=== PATIENT | female | born 1995 | race Caucasian/White ===

== ENCOUNTER 2017-12-07 13:31 | Emergency (ER) | payer MEDICAID ==
[~2017-12-07] VITALS: Ht 157.5 cm; Wt 98.5 kg
[2017-12-07 13:42] VITALS: BP 150/99
--- NOTE | 2017-12-07 13:47 | NUR ---
Patient ambulated to bed 6. RN evaluating patient at bedside.
--- NOTE | 2017-12-07 13:50 | NUR ---
Roma mc in [facility] - 12/07/17 at 1426 by MEDS Patient being evaluated by physician at bedside.
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
--- NOTE | 2017-12-07 13:53 | NUR ---
Dr. Tee evaluating patient at bedside.
--- NOTE | 2017-12-07 14:00 | NUR ---
EMT AT BEDSIDE FITTING POST OP SHOE
[2017-12-07] MEDS ORDERED: NEOMYCIN/POLYMYXIN/BACITRACIN 0.9 GM/1 PKT TP ONE (14:02)
[2017-12-07 14:33] VITALS: BP 146/96
--- NOTE | 2017-12-07 14:33 | NUR ---
Patient discharged with v/s stable. Written and verbal after care instructions given and explained. Patient alert, oriented and verbalized understanding of instructions. Ambulatory with steady gait. All questions addressed prior to discharge. ID band removed. Patient advised to follow up with PMD. Rx of MUPIROCIN2% TOPICAL CREAM given. Patient educated on indication of medication including possible reaction and side effects. Opportunity to ask questions provided and answered.
== END 2017-12-07 14:33 | disposition home or self-care (01) ==
LOC: MED 13:31
DX: L08.89 Other specified local infections of the skin and subcutaneous tissue (principal); R03.0 Elevated blood-pressure reading, without diagnosis of hypertension
CPT/HCPCS: 99283

== ENCOUNTER 2018-05-21 20:42 | Emergency (ER) | payer MEDICAID ==
[~2018-05-21] VITALS: Ht 157.5 cm; Wt 98.5 kg
[2018-05-21 20:45] VITALS: BP 117/80
--- NOTE | 2018-05-21 20:49 | NUR ---
TO LOBBY A/W BED, PAWAN SHETTY , NIGEL NOTED
--- NOTE | 2018-05-21 21:29 | NUR ---
Roma mc in [facility] - 05/21/18 at 2131 by ELAYNE PT TAKEN TO BED 4
--- NOTE | 2018-05-21 21:31 | NUR ---
PT TO ER BED 4
--- NOTE | 2018-05-21 21:45 | NUR ---
PATIENT PRESENTS TO ED WITH ABD PAIN. PT STATES PAIN SINCE THIS MORNING THAT HAS INCREASED IN INTENSITY AND IS CURRENTLY AT 8/10. PT REPORTS N/D; ABD IS SOFT, TENDER IN EPIGASTRIC REGION, WITH BOWEL SOUNDS PRESENT X4 QUADRANTS. SKIN IS PINK/WARM/DRY; AAOX4 WITH EVEN AND STEADY GAIT; VSS; PATIENT POSITIONED FOR COMFORT; HOB ELEVATED; BEDRAILS UP X2; BED DOWN. ER MD MADE AWARE OF PT STATUS.
--- NOTE | 2018-05-21 22:04 | NUR ---
DR ARMSTRONG AT BEDSIDE EVALUATING PT.
[2018-05-21] MEDS ORDERED: NACL 0.9% 1,000 ML IV ONE (22:20)
[2018-05-21] MEDS ORDERED: KETOROLAC 30 MG/ML VIAL IVP ONE (22:20)
[2018-05-21 22:29] LABS: BASOPHILS % (AUTO) 0.2 % (0.0-2.0); EOSINOPHILS # (AUTO) 0.1 K/uL (0-0.4); EOSINOPHILS % (AUTO) 0.6 % (0.0-4.0); HEMATOCRIT 37.2 % (36-48); HEMOGLOBIN 11.8 g/dL (12.0-16.0); LYMPHOCYTES # (AUTO) 2.8 K/uL (2.5-16.5); LYMPHOCYTES % (AUTO) 19.5 % (20.5-51.1); MEAN CORPUSCULAR HEMOGLOBIN 28 pg (27-31); MEAN CORPUSCULAR HGB CONC 32 g/dL (33-37); MEAN CORPUSCULAR VOLUME 87.8 fL (80-94); MONOCYTES % (AUTO) 6.9 % (1.7-9.3); NEUTROPHILS # (AUTO) 10.6 K/uL (1.8-7.7); NEUTROPHILS % (AUTO) 72.8 % (42.2-75.2); PLATELET COUNT (AUTO) 327 K/uL (140-450); RED BLOOD CELL COUNT(AUTO) 4.24 MIL/uL (4.20-5.40); RED CELL DISTRIBUTION WIDTH 14.1 % (11.6-13.7); WHITE BLOOD COUNT (AUTO) 14.5 K/uL (4.8-10.8)
--- NOTE | 2018-05-21 22:36 | NUR ---
PT RETURNED FROM RADIOLOGY
[2018-05-21 22:51] LABS: ALBUMIN 3.9 g/dL (3.4-5.0); ANION GAP 9.3 (8-16); CARBON DIOXIDE 24.6 mmol/L (21-32); CREATININE 0.8 mg/dL (0.6-1.3); POTASSIUM 3.9 mmol/L (3.5-5.1); TOTAL BILIRUBIN 0.5 mg/dL (0.0-1.0)
--- NOTE | 2018-05-21 23:50 | NUR ---
PT RESTING IN BED ON HER PHONE. PT DENIES PAIN. SAFETY PRECAUTIONS IN PLACE. WILL CONTINUE TO MONITOR.
[2018-05-22] MEDS ORDERED: cefTRIAXone 1,000 MG VIAL ONE (00:12)
[2018-05-22 01:00] VITALS: BP 101/63
--- NOTE | 2018-05-22 01:00 | NUR ---
Patient discharged with v/s stable. Written and verbal after care instructions given and explained. Patient alert, oriented and verbalized understanding of instructions. Ambulatory with steady gait. All questions addressed prior to discharge. ID band removed. Patient advised to follow up with PMD. Rx of Bactrim DS and Tramadol given. Patient educated on indication of medication including possible reaction and side effects. Opportunity to ask questions provided and answered.
== END 2018-05-22 01:00 | disposition home or self-care (01) ==
LOC: MED 20:42
DX: D72.829 Elevated white blood cell count, unspecified (principal); R19.7 Diarrhea, unspecified
CPT/HCPCS: 36415; 74022; 80053; 81002; 81025; 83690; 85025; 96361; 96365; 96375; 99284; J0696; J1885

== ENCOUNTER 2018-06-07 12:38 | Emergency (ER) | payer MEDICAID ==
[~2018-06-07] VITALS: Ht 160 cm; Wt 97.5 kg
[2018-06-07 12:44] VITALS: BP 136/73
--- NOTE | 2018-06-07 12:50 | NUR ---
PT AMBULATES TO BED 5
--- NOTE | 2018-06-07 12:59 | NUR ---
AAO WITH C/O PRODUCTIVE COUGH, NASAL/CHEST CONGESTION, SHARP ANTERIOR CHEST WALL PAIN UPON COUGHING X 3 DAYS HX---DENIES RX---NONE
[2018-06-07] MEDS ORDERED: DEXAMETHASONE 10 MG/ML VIAL IM ONE (13:30)
[2018-06-07] MEDS ORDERED: ALBUTEROL SULFATE/IPRATROPIU 3 ML SOL IH ONE (13:30)
[2018-06-07] MEDS ORDERED: CLINDAMYCIN 600 MG/4 ML VIAL IM ONE (13:30)
--- NOTE | 2018-06-07 14:35 | NUR ---
Patient being evaluated by physician at bedside.
[2018-06-07 15:38] VITALS: BP 110/62
--- NOTE | 2018-06-07 15:38 | NUR ---
Patient discharged with v/s stable. Written and verbal after care instructions given and explained. Patient alert, oriented and verbalized understanding of instructions. Ambulatory with steady gait. All questions addressed prior to discharge. ID band removed. Patient advised to follow up with PMD. Rx of Clindamycin, Prednisone given. Patient educated on indication of medication including possible reaction and side effects. Opportunity to ask questions provided and answered.
== END 2018-06-07 15:38 | disposition home or self-care (01) ==
LOC: MED 12:38
DX: R05 Cough (principal); R09.81 Nasal congestion; R51 Headache; R53.1 Weakness
CPT/HCPCS: 94640; 96372; 99283; J1100; J3490; J7620

== ENCOUNTER 2018-06-07 21:34 | Emergency (ER) | payer MEDICAID ==
[~2018-06-07] VITALS: Ht 157.5 cm; Wt 113.4 kg
--- NOTE | 2018-06-07 21:44 | NUR ---
TO BED # 11 AMBULATORY, REPORT GIVEN TO EDIE TRACY
[2018-06-07 21:47] VITALS: BP 132/74
--- NOTE | 2018-06-07 21:53 | NUR ---
23 YO F BIB SELF. PT STATES SHE WAS AT [facility] ER THIS AFTERNOON FOR THROAT PAIN. PT STATES SHE STARTED HAVING FULL FACIAL TINGLING THAT STARTED AROUND 2000 TONIGHT. C/O OF HEADACHE 6/10 PAIN STARTED AT THE SAME TIME OF FACIAL TINGLING. PUPILS EQUAL; REACTIVE AND BRISK. HAND STRENGTH EQUAL BILATERALY. FACIAL SMILE SYMETRICAL. DENIES LOC; AAOX4. CLEAR SPEACH. GCS 15. HX: BELLS PALSEY (DX IN 2016).
--- NOTE | 2018-06-07 22:02 | NUR ---
MICHAEL MORSE AT BEDSIDE.
[2018-06-07 22:15] VITALS: BP 140/82
--- NOTE | 2018-06-07 22:15 | NUR ---
Patient discharged with v/s stable. Written and verbal after care instructions given and explained. Patient alert, oriented and verbalized understanding of instructions. Ambulatory with steady gait. All questions addressed prior to discharge. ID band removed. Patient advised to follow up with PMD. Rx of PREDNISONE 50MG given. Patient educated on indication of medication including possible reaction and side effects. Opportunity to ask questions provided and answered.
== END 2018-06-07 22:15 | disposition home or self-care (01) ==
LOC: MED 21:34
DX: R20.2 Paresthesia of skin (principal); G51.0 Bell's palsy
CPT/HCPCS: 99283

== ENCOUNTER 2018-10-10 13:52 | Emergency (ER) | payer MEDICAID ==
[~2018-10-10] VITALS: Ht 157.5 cm; Wt 99.3 kg
[2018-10-10 14:08] VITALS: BP 115/72
--- NOTE | 2018-10-10 14:12 | NUR ---
PT AMBULATED TO RESTROOM TO PROVIDE URINE SAMPLE AND THEN IS GOING TO LOBBY. VSS.
--- NOTE | 2018-10-10 14:43 | NUR ---
PATIENT AMBULATED TO ER BED 3.
--- NOTE | 2018-10-10 14:45 | NUR ---
C/O VOMITING, HEADACH, ABD PAIN, AND HOT AND COLD FLASHES SINCE 03:00 THIS MORNING. PT REPORTS INTERMITENT SHARP EPIGASTRIC PAIN AT 9/10. . SKIN IS PINK/WARM/DRY; AAOX4 WITH EVEN AND STEADY GAIT; LUNGS CLEAR BL; HR EVEN AND REGULAR; PT DENIES ANY FEVER, CP, SOB, OR COUGH AT THIS TIME; PATIENT STATES PAIN OF 9/10 AT THIS TIME; VSS; PATIENT POSITIONED FOR COMFORT; HOB ELEVATED; BEDRAILS UP X2; BED DOWN. ER MD MADE AWARE OF PT STATUS.
[2018-10-10] MEDS ORDERED: ONDANSETRON 4 MG ODT PO ONE (15:20)
[2018-10-10] MEDS ORDERED: FAMOTIDINE 20 MG TAB PO ONE (15:20)
[2018-10-10 15:42] LABS: APPEARANCE,URINE CLEAR (CLEAR); BILIRUBIN,URINE NEGATIVE (NEGATIVE); BLOOD, URINE NEGATIVE (NEGATIVE); COLOR,URINE YELLOW (YELLOW); LEUKOCYTE ESTERASE ,URINE NEGATIVE (NEGATIVE); NITRITE, URINE NEGATIVE (NEGATIVE); UGLUCOSE NEGATIVE (NEGATIVE)
[2018-10-10 15:50] LABS: BASOPHILS % (AUTO) 0.3 % (0.0-2.0); EOSINOPHILS % (AUTO) 0.1 % (0.0-4.0); HEMATOCRIT 37.8 % (36-48); HEMOGLOBIN 12.3 g/dL (12.0-16.0); LYMPHOCYTES # (AUTO) 1.7 K/uL (2.5-16.5); LYMPHOCYTES % (AUTO) 11.6 % (20.5-51.1); MEAN CORPUSCULAR HEMOGLOBIN 28 pg (27-31); MEAN CORPUSCULAR HGB CONC 33 g/dL (33-37); MEAN CORPUSCULAR VOLUME 86.4 fL (80-94); MONOCYTES # (AUTO) 0.9 K/uL (0.8-1.0); MONOCYTES % (AUTO) 6.3 % (1.7-9.3); NEUTROPHILS # (AUTO) 11.7 K/uL (1.8-7.7); NEUTROPHILS % (AUTO) 81.7 % (42.2-75.2); PLATELET COUNT (AUTO) 339 K/uL (140-450); RED BLOOD CELL COUNT(AUTO) 4.38 MIL/uL (4.20-5.40); RED CELL DISTRIBUTION WIDTH 13.9 % (11.6-13.7); WHITE BLOOD COUNT (AUTO) 14.3 K/uL (4.8-10.8)
[2018-10-10 15:55] LABS: ANION GAP 13.2 (8-16); CARBON DIOXIDE 24.7 mmol/L (21-32); CREATININE 0.8 mg/dL (0.6-1.3); POTASSIUM 3.9 mmol/L (3.5-5.1)
[2018-10-10 16:00] LABS: ALBUMIN 3.7 g/dL (3.4-5.0); TOTAL BILIRUBIN 0.7 mg/dL (0.0-1.0)
--- NOTE | 2018-10-10 16:54 | NUR ---
pt stated pain relieved. family at bedside. will continue to monitor.
[2018-10-10 17:34] VITALS: BP 132/88
--- NOTE | 2018-10-10 17:34 | NUR ---
Patient discharged with v/s stable. Written and verbal after care instructions given and explained. Patient alert, oriented and verbalized understanding of instructions. Ambulatory with steady gait. All questions addressed prior to discharge. ID band removed. Patient advised to follow up with PMD. Rx of ZOFRAN 4MG ODT AND PEPCID 20MG given. Patient educated on indication of medication including possible reaction and side effects. Opportunity to ask questions provided and answered.
== END 2018-10-10 17:43 | disposition home or self-care (01) ==
LOC: MED 13:52
DX: R10.9 Unspecified abdominal pain (principal); R11.10 Vomiting, unspecified; D72.829 Elevated white blood cell count, unspecified
CPT/HCPCS: 36415; 76705; 80053; 81003; 81025; 83690; 85025; 99284; Q0092; Q0162

== ENCOUNTER 2018-11-11 18:04 | Emergency (ER) | payer MEDICAID ==
[~2018-11-11] VITALS: Ht 157.5 cm; Wt 102.1 kg
[2018-11-11 18:40] VITALS: BP 117/80
--- NOTE | 2018-11-11 18:42 | NUR ---
TRIAGED TO LOBBY, AMB. NOT IN DISTRESS, VSS.
--- NOTE | 2018-11-11 19:20 | NUR ---
PT TAKEN TO BED 7
--- NOTE | 2018-11-11 19:45 | NUR ---
PT BIB SELF C/O COLD SYMPTOMS. PT STATES SHE WOKE UP THIS MORNING W/ PRODUCTIVE COUGH, CHILLS AND CONGESTION; +YELLOW MUCOUS PRODUCTIONS FROM COUGHING, 9/10 CHEST PAIN W/ COUGHING. PT ACTING APPROPRIATLY TO AGE, SPEAKING IN CLEAR AND COMPLETE SENTENCES. BREATHING EQUAL AND UNLABORED. TIGHT LUNG SOUND IN LOWER LOBES. PMH: DENIES
--- NOTE | 2018-11-11 20:33 | NUR ---
Dr. Motley evaluating patient at bedside.
[2018-11-11] MEDS ORDERED: KETOROLAC 60 MG/2 ML VIAL IM ONE (20:35)
[2018-11-11 21:06] VITALS: BP 120/78
== END 2018-11-11 21:06 | disposition home or self-care (01) ==
LOC: MED 18:04
DX: J06.9 Acute upper respiratory infection, unspecified (principal)
CPT/HCPCS: 71046; 96372; 99283; J1885

== ENCOUNTER 2019-07-22 12:33 | Emergency (ER) | payer MEDICAID ==
[~2019-07-22] VITALS: Ht 157.5 cm; Wt 103.9 kg
[2019-07-22 12:54] VITALS: BP 138/89
--- NOTE | 2019-07-22 12:58 | NUR ---
PT TO MICHAEL CARDENAS
[2019-07-22] MEDS ORDERED: KETOROLAC 30 MG/ML VIAL IM ONE (14:40)
[2019-07-22 15:40] VITALS: BP 142/95
--- NOTE | 2019-07-22 15:47 | NUR ---
Stable VSS Minimal pain MD has reassessed and Dc'd home To exit
== END 2019-07-22 15:41 | disposition home or self-care (01) ==
LOC: MED 12:33
DX: G89.21 Chronic pain due to trauma (principal); M25.511 Pain in right shoulder
CPT/HCPCS: 73030; 81025; 96372; 99283; J1885

== ENCOUNTER 2019-07-29 11:35 | Emergency (ER) | payer MEDICAID ==
[~2019-07-29] VITALS: Ht 162.6 cm; Wt 101.2 kg
[2019-07-29 11:44] VITALS: BP 137/85
--- NOTE | 2019-07-29 11:49 | NUR ---
PT AMBULATED TO LOBBY WITH STEADY GAIT
--- NOTE | 2019-07-29 11:53 | NUR ---
PT TO RADIOLOGY VIA WHEELCHAIR
--- NOTE | 2019-07-29 12:48 | NUR ---
Patient ambulated to bed 3. RN evaluating patient at bedside.
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
[2019-07-29] MEDS: KETOROLAC 60 MG/2 ML VIAL IM ONE (13:58)
[2019-07-29] MEDS: HYDROcodone/APAP 5/325 MG 1 TAB TAB PO ONE (13:58)
--- NOTE | 2019-07-29 14:11 | NUR ---
PLACED PT'S RIGHT ARM IN A SLING AT HER POSITION OF COMFORT.
[2019-07-29 14:46] VITALS: BP 121/72
--- NOTE | 2019-07-29 14:46 | NUR ---
Patient discharged with v/s stable. Written and verbal after care instructions given and explained. Patient alert, oriented and verbalized understanding of instructions. Ambulatory with steady gait. All questions addressed prior to discharge. ID band removed. Patient advised to follow up with PMD. Rx of NORCO AND IBUPROFEN given. Patient educated on indication of medication including possible reaction and side effects. Opportunity to ask questions provided and answered. PT MADE AWARE OF SIDE EFFECTS OF MEDICATION, INFORMED NOT TO DRIVE ON NORCO
== END 2019-07-29 14:46 | disposition home or self-care (01) ==
LOC: MED 11:35
DX: G89.29 Other chronic pain (principal); M25.511 Pain in right shoulder
CPT/HCPCS: 73030; 81025; 96372; 99283; J1885

== ENCOUNTER 2019-07-30 18:27 | Emergency (ER) | payer MEDICAID ==
[~2019-07-30] VITALS: Ht 157.5 cm; Wt 101.6 kg
[2019-07-30 18:41] VITALS: BP 139/93
--- NOTE | 2019-07-30 19:01 | NUR ---
C/O ABDOMINAL PAIN X 1 DAY, 03/26, SHARP. DENIES NVD, FEVER OR COUGH. TOOK IBUPROFEN AT 1730 TODAY. LMP: 07/13/2019 DENIES PMH MEDS: NONE
--- NOTE | 2019-07-30 19:26 | NUR ---
RECVIED REPORT FORM DEMARCUS ACKERMAN. WILL CONT CARE AT THIS TIME.
[2019-07-30] MEDS ORDERED: DICYCLOMINE HCL LIQUID 20 MG, ALUMINUM HYD/MAG/SIMETHICONE 30 ML, LIDOCAINE VISCOUS 2% ... PO ONE ×3 (19:30)
[2019-07-30] MEDS ORDERED: ALUMINUM HYD/MAG/SIMETHICONE 30 ML UDC ONE (19:36)
[2019-07-30] MEDS ORDERED: LIDOCAINE VISCOUS 2% 20 ML UDC ONE (19:36)
[2019-07-30] MEDS ORDERED: DICYCLOMINE HCL LIQUID 10 MG/5 ML UDC ONE (19:36)
[2019-07-30 20:45] LABS: APPEARANCE,URINE CLEAR (CLEAR); BILIRUBIN,URINE NEGATIVE (NEGATIVE); BLOOD, URINE NEGATIVE (NEGATIVE); COLOR,URINE YELLOW (YELLOW); LEUKOCYTE ESTERASE ,URINE NEGATIVE (NEGATIVE); NITRITE, URINE NEGATIVE (NEGATIVE); UGLUCOSE NEGATIVE (NEGATIVE)
[2019-07-30 20:47] LABS: BASOPHILS # (AUTO) 0.1 K/uL (0.00-0.22); BASOPHILS % (AUTO) 1.3 % (0.0-2.0); EOSINOPHILS # (AUTO) 0.1 K/uL (0-0.4); EOSINOPHILS % (AUTO) 0.5 % (0.0-4.0); HEMATOCRIT 35.7 % (36-48); HEMOGLOBIN 11.3 g/dL (12.0-16.0); LYMPHOCYTES # (AUTO) 3.6 K/uL (2.5-16.5); LYMPHOCYTES % (AUTO) 33.6 % (20.5-51.1); MEAN CORPUSCULAR HEMOGLOBIN 28 pg (27-31); MEAN CORPUSCULAR HGB CONC 32 g/dL (33-37); MEAN CORPUSCULAR VOLUME 87.2 fL (80-94); MONOCYTES # (AUTO) 0.6 K/uL (0.8-1.0); MONOCYTES % (AUTO) 5.9 % (1.7-9.3); NEUTROPHILS # (AUTO) 6.3 K/uL (1.8-7.7); NEUTROPHILS % (AUTO) 58.7 % (42.2-75.2); PLATELET COUNT (AUTO) 357 K/uL (140-450); RED CELL DISTRIBUTION WIDTH 14.5 % (11.6-13.7); WHITE BLOOD COUNT (AUTO) 10.7 K/uL (4.8-10.8)
[2019-07-30 20:51] LABS: ALBUMIN 3.7 g/dL (3.4-5.0); ANION GAP 14.3 (8-16); CARBON DIOXIDE 24.5 mmol/L (21-32); CREATININE 0.8 mg/dL (0.6-1.3); POTASSIUM 3.8 mmol/L (3.5-5.1); TOTAL BILIRUBIN 0.2 mg/dL (0.0-1.0)
[2019-07-30 21:09] VITALS: BP 139/93
--- NOTE | 2019-07-30 21:09 | NUR ---
Patient discharged with v/s stable. Written and verbal after care instructions given and explained. Patient alert, oriented and verbalized understanding of instructions. Ambulatory with steady gait. All questions addressed prior to discharge. ID band removed. Patient advised to follow up with PMD. Rx of ZOFRAN, BENTYL, PEPCID given. Patient educated on indication of medication including possible reaction and side effects. Opportunity to ask questions provided and answered.
== END 2019-07-30 21:09 | disposition home or self-care (01) ==
LOC: MED 18:27
DX: R10.13 Epigastric pain (principal)
CPT/HCPCS: 36415; 80053; 81003; 81025; 83690; 84703; 85025; 99283

== ENCOUNTER 2019-11-03 17:20 | Emergency (ER) | payer MEDICAID ==
[~2019-11-03] VITALS: Ht 157.5 cm; Wt 95.3 kg
[2019-11-03 17:44] VITALS: BP 155/100
[2019-11-03] MEDS ORDERED: KETOROLAC 30 MG/ML VIAL IM ONE (17:55)
[2019-11-03 18:49] VITALS: BP 141/92
== END 2019-11-03 18:45 | disposition home or self-care (01) ==
LOC: MED 17:20
DX: M25.511 Pain in right shoulder (principal)
CPT/HCPCS: 73030; 96372; 99283; J1885

== ENCOUNTER 2020-07-27 20:18 | Emergency (ER) | payer MEDICAID ==
[~2020-07-27] VITALS: Ht 157.5 cm; Wt 90.7 kg
[2020-07-27 20:29] VITALS: BP 130/90
--- NOTE | 2020-07-27 20:29 | NUR ---
TO BED AMBULATORY
--- NOTE | 2020-07-27 20:42 | NUR ---
Dr. De Paz examining patient.
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
[2020-07-27] MEDS ORDERED: diazePAM 5 MG TAB PO ONE (20:50)
[2020-07-27] MEDS ORDERED: KETOROLAC 30 MG/ML VIAL IM ONE (22:00)
--- NOTE | 2020-07-27 22:00 | NUR ---
PT STATES THE TINGLING AND NUMBNESS TO RIGHT SIDE HAS IMPROVED HOWEVER THE PAIN FEELS LIKE IT HAS GOTTEN WORSE. MD DELACRZU AWARE
--- NOTE | 2020-07-27 22:43 | NUR ---
PT STATES PAIN 08/24 NOW, AWARE
--- NOTE | 2020-07-27 23:16 | NUR ---
Patient discharged with v/s stable. Written and verbal after care instructions given and explained. Patient alert, oriented and verbalized understanding of instructions. Ambulatory with steady gait. All questions addressed prior to discharge. ID band removed. Patient advised to follow up with PMD. Rx of VALIUM AND NAPROSYN given. Patient educated on indication of medication including possible reaction and side effects. Opportunity to ask questions provided and answered.
[2020-07-27 23:17] VITALS: BP 128/87
== END 2020-07-27 23:16 | disposition home or self-care (01) ==
LOC: MED 20:18
DX: M25.511 Pain in right shoulder (principal); M54.10 Radiculopathy, site unspecified; Z98.890 Other specified postprocedural states
CPT/HCPCS: 71046; 96372; 99283; J1885

== ENCOUNTER 2020-12-26 10:00 | Emergency (ER) | payer MEDICAID ==
[~2020-12-26] VITALS: Ht 157.5 cm; Wt 106.6 kg
[2020-12-26 10:04] VITALS: BP 137/78
--- NOTE | 2020-12-26 10:08 | NUR ---
Pt ambulated to ER bed 4 with a steady gait.
--- NOTE | 2020-12-26 10:13 | NUR ---
RN at pt bedside for assessment.
--- NOTE | 2020-12-26 10:19 | NUR ---
26 Y/O FEMALE C/O ABDOMINAL AND LOWER BACK PAIN X3 DAYS. DENIES N/V/D. PT DENIES ANY CHANGES IN HER BOWELS AND STATES LAST BM WAS 12/26/20. DENIES ANY CHANGES IN HER URINE, DENIES ANY HESISTANCY, PAIN, OR BURNING WHEN URNINATING. PMH:DENIES NKDA
--- NOTE | 2020-12-26 10:20 | NUR ---
Dr. De Paz is evaluating the patient at bedside.
[2020-12-26] MEDS ORDERED: KETOROLAC 60 MG/2 ML VIAL IM ONE (10:30)
[2020-12-26] MEDS ORDERED: DICYCLOMINE HCL LIQUID 20 MG, ALUMINUM HYD/MAG/SIMETHICONE 30 ML, LIDOCAINE VISCOUS 2% ... PO ONE ×3 (10:30)
[2020-12-26] MEDS ORDERED: ALUMINUM HYD/MAG/SIMETHICONE 30 ML UDC ONE (10:33)
[2020-12-26] MEDS ORDERED: DICYCLOMINE HCL LIQUID 10 MG/5 ML UDC ONE (10:33)
--- NOTE | 2020-12-26 10:34 | NUR ---
RN at pt bedside for lab draw.
--- NOTE | 2020-12-26 10:40 | NUR ---
Blood given to dominguez Esqueda tech at pt bedside.
[2020-12-26 11:05] LABS: ALBUMIN 4.1 g/dL (3.4-5.0); ANION GAP 12.5 (8-16); BASOPHILS # (AUTO) 0.1 K/uL (0.00-0.22); BASOPHILS % (AUTO) 0.9 % (0.0-2.0); CARBON DIOXIDE 24.7 mmol/L (21-32); CREATININE 0.8 mg/dL (0.6-1.3); EOSINOPHILS # (AUTO) 0.1 K/uL (0-0.4); EOSINOPHILS % (AUTO) 0.7 % (0.0-4.0); HEMATOCRIT 39.1 % (36-48); HEMOGLOBIN 12.9 g/dL (12.0-16.0); LYMPHOCYTES # (AUTO) 4.8 K/uL (2.5-16.5); LYMPHOCYTES % (AUTO) 48.6 % (20.5-51.1); MEAN CORPUSCULAR HEMOGLOBIN 29 pg (27-31); MEAN CORPUSCULAR HGB CONC 33 g/dL (33-37); MEAN CORPUSCULAR VOLUME 89.2 fL (80-94); MONOCYTES # (AUTO) 0.7 K/uL (0.8-1.0); MONOCYTES % (AUTO) 7.1 % (1.7-9.3); NEUTROPHILS # (AUTO) 4.2 K/uL (1.8-7.7); NEUTROPHILS % (AUTO) 42.7 % (42.2-75.2); PLATELET COUNT (AUTO) 317 K/uL (140-450); POTASSIUM 4.2 mmol/L (3.5-5.1); RED BLOOD CELL COUNT(AUTO) 4.38 MIL/uL (4.20-5.40); RED CELL DISTRIBUTION WIDTH 13.6 % (11.6-13.7); TOTAL BILIRUBIN 0.2 mg/dL (0.0-1.0); WHITE BLOOD COUNT (AUTO) 9.9 K/uL (4.8-10.8)
--- NOTE | 2020-12-26 11:21 | NUR ---
PT RESTING IN BED ON HER PHONE. DENIES SHE IS IN ANY PAIN AND STATES SHE FEELS BETTER. BED TO LOWEST TO POSITION. SIDERAIL X1 UP. WILL CONTUINE TO MONITOR
== END 2020-12-26 12:20 | disposition home or self-care (01) ==
LOC: MED 10:00
DX: R10.10 Upper abdominal pain, unspecified (principal)
CPT/HCPCS: 36415; 80053; 81002; 81025; 83690; 85025; 96372; 99283; J1885

== ENCOUNTER 2021-10-28 00:41 | Emergency (ER) | payer MEDICAID ==
[~2021-10-28] VITALS: Ht 157.5 cm; Wt 95.3 kg
[2021-10-28 01:03] VITALS: BP 113/97
[2021-10-28] MEDS ORDERED: ACETAMINOPHEN EXTRA STRENGTH 500 MG TAB PO ONE (01:50)
[2021-10-28] MEDS ORDERED: GABAPENTIN 300 MG CAP PO ONE (01:50)
--- NOTE | 2021-10-28 01:50 | NUR ---
Dr. Guajardo examming patient.
[2021-10-28] MEDS ORDERED: GABA-636 PO (01:54)
[2021-10-28] MEDS ORDERED: IBUP-2218 PO (01:54)
[2021-10-28 02:37] VITALS: BP 113/97
--- NOTE | 2021-10-28 02:37 | NUR ---
Patient discharged . Written and verbal after care instructions given and explained. Patient alert, oriented and verbalized understanding of instructions. Ambulatory with steady gait. All questions addressed prior to discharge.. Patient advised to follow up with PMD. Rx of GABAPENTIN IBUPROFEN given. Patient educated on indication of medication including possible reaction and side effects. Opportunity to ask questions provided and answered.
--- NOTE | 2021-10-28 02:40 | NUR ---
PATIENT WAS DC FROM [facility]
== END 2021-10-28 02:37 | disposition home or self-care (01) ==
LOC: MED 00:41
DX: R20.2 Paresthesia of skin (principal); Z79.1 Long term (current) use of non-steroidal anti-inflammatories (NSAID); Z79.899 Other long term (current) drug therapy
CPT/HCPCS: 99283

== ENCOUNTER 2022-03-12 11:05 | Emergency (ER) | payer MEDICAID ==
[~2022-03-12] VITALS: Ht 157.5 cm; Wt 102.5 kg
[~2022-03-12 11:05] MED LIST: GABA-636 PO; IBUP-2218 PO
[2022-03-12 11:28] VITALS: BP 147/93
--- NOTE | 2022-03-12 11:31 | NUR ---
BIB SELF C/O 03/26 RIGHT UPPER LIP PAIN/RASH, R FACIAL SWELLING X TODAY. PMH: DENIES
--- NOTE | 2022-03-12 12:09 | NUR ---
called in lobby, no answer
--- NOTE | 2022-03-12 12:25 | NUR ---
no answer at this time
--- NOTE | 2022-03-12 12:27 | NUR ---
Roma mc in [facility] - 03/12/22 at 1234 by ALVERTO eloped at this time
== END 2022-03-12 12:09 | disposition left against medical advice (07) ==
LOC: MED 11:05
DX: R21 Rash and other nonspecific skin eruption (principal); Z53.21 Procedure and treatment not carried out due to patient leaving prior to being seen by health care provider

== ENCOUNTER 2022-03-19 14:12 | Emergency (ER) | payer MEDICAID ==
[~2022-03-19] VITALS: Ht 157.5 cm; Wt 102.5 kg
[2022-03-19 14:19] VITALS: BP 156/105
--- NOTE | 2022-03-19 14:25 | NUR ---
RONALD. HANDED ON URINE CUP.
--- NOTE | 2022-03-19 14:30 | NUR ---
C/O 03/26 GENERALIZED ABDOMINAL PAIN, N/V/D, LOWER BACK PAIN X TODAY. DENIES DYSURIA. PMH: DENIES
--- NOTE | 2022-03-19 15:55 | NUR ---
PT IS UNABLE TO PROVIDE URINE SAMPLE AT THIS TIME.
[2022-03-19 17:10] LABS: HEMATOCRIT 38.2 % (36-48); HEMOGLOBIN 12.5 g/dL (12.0-16.0); MEAN CORPUSCULAR HEMOGLOBIN 29 pg (27-31); MEAN CORPUSCULAR HGB CONC 33 g/dL (33-37); MEAN CORPUSCULAR VOLUME 88.4 fL (80-94); PLATELET COUNT (AUTO) 365 K/uL (140-450); RED BLOOD CELL COUNT(AUTO) 4.32 MIL/uL (4.20-5.40); RED CELL DISTRIBUTION WIDTH 13.6 % (11.6-13.7); WHITE BLOOD COUNT (AUTO) 24.5 K/uL (4.8-10.8)
[2022-03-19] MEDS ORDERED: ONDANSETRON 4 MG ODT PO ONE (17:15)
[2022-03-19] MEDS ORDERED: ALUMINUM HYD/MAG/SIMETHICONE 30 ML UDC PO ONE (17:15)
[2022-03-19] MEDS ORDERED: FAMOTIDINE 20 MG TAB PO ONE (17:15)
[2022-03-19 17:34] LABS: ALBUMIN 3.9 g/dL (3.4-5.0); ANION GAP 13.2 (8-16); CARBON DIOXIDE 25.1 mmol/L (21-32); CREATININE 0.9 mg/dL (0.6-1.3); POTASSIUM 4.3 mmol/L (3.5-5.1); TOTAL BILIRUBIN 0.2 mg/dL (0.0-1.0)
[2022-03-19 17:58] LABS: LYMPHOCYTES % (MANUAL) 9 % (20-46); METAMYELOCYTES % 2 % (0-0); MONOCYTES % (MANUAL) 1 % (5-12)
[2022-03-19 18:49] LABS: APPEARANCE,URINE CLEAR (CLEAR); BILIRUBIN,URINE NEGATIVE (NEGATIVE); BLOOD, URINE NEGATIVE (NEGATIVE); COLOR,URINE YELLOW (YELLOW); LEUKOCYTE ESTERASE ,URINE NEGATIVE (NEGATIVE); NITRITE, URINE POSITIVE (NEGATIVE); UGLUCOSE NEGATIVE (NEGATIVE)
[2022-03-19] MEDS ORDERED: CEPH-588 PO (19:12)
--- NOTE | 2022-03-19 19:16 | NUR ---
REFUSED CT, NIGEL VERAS IS AWARE.
[2022-03-19 19:20] VITALS: BP 156/105
--- NOTE | 2022-03-19 19:20 | NUR ---
PT LEFT AMA. WAS GIVEN RX AND ACI. PT AWARE OF RISKS INVOLVED WITH LEAVING AMA
== END 2022-03-19 19:20 | disposition left against medical advice (07) ==
LOC: MED 14:12
DX: R10.11 Right upper quadrant pain (principal)
CPT/HCPCS: 36415; 80053; 81003; 81025; 83690; 84702; 85025; 99283; Q0162